=== PATIENT | male | born 1970 | race Caucasian/White ===

== ENCOUNTER 2016-09-20 15:36 | Emergency (ER) | payer OTHER ==
[~2016-09-20] VITALS: Ht 177.8 cm; Wt 117.7 kg
[2016-09-20 17:11] LABS: BASOPHIL COUNT 0.1 K/uL (0-0.1); EOSINOPHIL (%) 1.9 % (0-5); EOSINOPHIL COUNT 0.2 K/uL (0-0.3); HEMATOCRIT 42.7 % (38.0-50.0); IMMATURE GRANULOCYTE (%) 0.4 % (0.0-0.7); IMMATURE GRANULOCYTE COUNT 0.4 K/uL; LYMPHOCYTE COUNT 3.2 K/uL (1.0-2.8); MCH 31.3 PG (29.0-34.0); MCHC 35.6 G/DL (30.0-36.0); MEAN PLAT.VOLUME 9.4 uM^3 (9.0-12.4); MONOCYTE (%) 9.6 % (3-12); MONOCYTE COUNT 1.1 K/uL (0-0.8); NEUTROPHIL (%) 58.7 % (45-76); NEUTROPHIL COUNT 6.5 K/uL (1.8-6.4); PLATELET COUNT 272 K/uL (156-360); RBC DIS.WIDTH-CV 12.7 % (11.8-14.6); RBC DIS.WIDTH-SD 39.8 % (39-53); RED BLOOD COUNT 4.85 M/uL (4.00-5.50); WHITE BLOOD COUNT 11.1 K/uL (4.1-10.2)
[2016-09-20 17:22] LABS: D-DIMER ELISA 0.18 mg/L FEU (< 0.57)
[2016-09-20 17:26] LABS: CHLORIDE 104 mEq/L (99-109); POTASSIUM 4.2 mEq/L (3.7-5.4); SODIUM 138 mEq/L (136-147)
[2016-09-20 17:28] LABS: GLUCOSE 125 mg/dL (70-99)
[2016-09-20 17:29] LABS: ANION GAP 12 MEQ/L (2-14)
[2016-09-20 17:30] LABS: TOTAL BILIRUBIN 0.5 mg/dL (0.0-1.0)
[2016-09-20 17:31] LABS: TROP-I INTERPRETATION NEGATIVE; TROPONIN-I < 0.01 ng/mL (0.0-0.30)
[2016-09-20 17:32] LABS: ALKALINE PHOSPHATASE 84 IU/L (3-129); GFR ESTIMATE (CALCULATED) > 59 mL/min/
[2016-09-20 17:33] LABS: UREA NITROGEN (BUN) 13 mg/dL (9-23)
[2016-09-20 21:08] LABS: TROP-I INTERPRETATION NEGATIVE; TROPONIN-I < 0.01 ng/mL (0.0-0.30)
[2016-09-20] MEDS ORDERED: METFORMIN HCL500 M4 PO (22:08)
[2016-09-20] MEDS ORDERED: LISINOPRIL10 MG PO (22:09)
[2016-09-20] MEDS ORDERED: LITE COAT ASPI325 M1 PO (22:09)
[2016-09-21 01:00] VITALS: BP 135/82
== END 2016-09-21 01:17 | disposition short-term general hospital (02) ==
LOC: EME 15:36
PROVIDERS: Emergency Medicine
DX: R07.9 Chest pain, unspecified (principal); E11.9 Type 2 diabetes mellitus without complications; I10 Essential (primary) hypertension; E78.00 Pure hypercholesterolemia, unspecified; E66.9 Obesity, unspecified; Z79.82 Long term (current) use of aspirin; Z87.891 Personal history of nicotine dependence
CPT/HCPCS: 71010; 80053; 84484; 85025; 85379; 93005; 99281; 99285